=== PATIENT | male | born 1950 | race Caucasian/White ===

== ENCOUNTER 2018-01-24 06:37 | Day surgery (SDC) | payer OTHER ==
[~2018-01-24] VITALS: Ht 177.8 cm; Wt 97.0 kg
[~2018-01-24 06:37] MED LIST: ALBIPROI; ALBU90OI6 INH; ALEN70 PO; AMIL5; ANDROGEL; AZAT50 PO; BUME1; CALCA400CH PO; CALCAVITDA PO; CEFU500; CENTURY PO; CIPR500; CIPR750; COMBIVENT RESPIM4 GM INH; CYCL10 PO; Copegus200 MG PO; DIAZ5 PO; DIPH25; DIPH50; DULO60 PO; EPOE20I; ESCI10; FLUSAL1005; FLUSAL1005 INH; FOLI1; FURO40; FURO40 PO; Flonase 0.05% N16 GM; GABA300; GENERLAC; HARVONI 90-4001 EACH PO; HECORIA0.5 MG PO; HYDMOR2; Keflex500 MG PO; LACT10SY; LEVFLO500; LEVFLO500 PO; MAGCHL64ER; MAGN84; MAGOXI400; MAGOXI400 PO; MESA400ER; METO5; MIDO5; MIDODRINE; MORP15ER; MORP30; MORP30 PO; MULVIT PO; MULVITB&C; MYCO250 PO; NADO20; NADO40; NICO21TP; Norflex100 MG; OMEP10ER; OMEP20ER; ONDA4; OXCA300 PO; OXYC5; PANT40; PHYT5; POTCHL10ER; POTCHL20ER; POTCHL20ER PO; PRED1; PROM25; PROM25 PO; Prednisone20 MG PO; Prilosec Otc20 MG PO; QUIN300; QUIN325; RIFAXIMIN; SPIR50; Senna8.6 MG PO; TACR1 PO; TACROLIMUS0.5 MG PO; TIOT18 INH; Triamcinolone A15 G3; VITAMIN K; [UNRECOGNIZED DRUG - CODE]; [UNRECOGNIZED DRUG - OTHER] PO; [UNRECOGNIZED DRUG - SUPPLY] MC
[2018-01-24] MEDS ORDERED: CALCIUM 500 +1 EAC4 PO (06:50)
[2018-01-24] MEDS ORDERED: PROGRAF PO (06:51)
[2018-01-24] MEDS ORDERED: Vitamin D400 UNI1 PO (06:52)
[2018-01-24] MEDS ORDERED: Norflex100 MG (06:52)
[2018-01-24] MEDS ORDERED: EPIPEN 2-P0.3 MG/0.3 IM (06:52)
[2018-01-24] MEDS ORDERED: ALBU90OI6 INH (06:53)
[2018-01-24 07:12] LABS: International Normalized Ratio 1.06
[2018-01-24] MEDS ORDERED: Neurontin 100100 MG PO (07:14)
[2018-01-24] MEDS ORDERED: MIRT15ST MM (07:16)
[2018-01-24 07:26] LABS: Prostate Specific Antigen 0.035 ng/mL (0.000-4.000)
== END 2018-01-24 23:23 | disposition home or self-care (01) ==
LOC: MHTC 06:37
PROVIDERS: Internal Medicine; Nurse Practitioner
PROC: 065P3ZZ Destruction of Right Saphenous Vein, Percutaneous Approach (ICD-10-PCS; principal; 2018-01-24)
DX: I87.2 Venous insufficiency (chronic) (peripheral) (principal); Z94.4 Liver transplant status; Z79.899 Other long term (current) drug therapy
CPT/HCPCS: 36415; 36475; 85610; 87081; 99152; C1769; C1888; C1894; G0103; J1644; J2250; J3010; J7030; J7040

== ENCOUNTER 2019-04-08 16:33 | Emergency (ER) | payer OTHER ==
[~2019-04-08] VITALS: Ht 177.8 cm; Wt 99.8 kg
[~2019-04-08 16:33] MED LIST changes: +CALCIUM 500 +1 EAC4 PO; +EPIPEN 2-P0.3 MG/0.3 IM; +MIRT15ST MM; +Neurontin 100100 MG PO; +PROGRAF PO; +Vitamin D400 UNI1 PO
== END 2019-04-08 21:17 | disposition home or self-care (01) ==
LOC: ER 16:33
DX: S22.41XA Multiple fractures of ribs, right side, initial encounter for closed fracture (principal); W10.9XXA Fall (on) (from) unspecified stairs and steps, initial encounter; Z88.8 Allergy status to other drugs, medicaments and biological substances; Z79.899 Other long term (current) drug therapy; F17.210 Nicotine dependence, cigarettes, uncomplicated
CPT/HCPCS: 71046; 71100; 96374; 96376; 99283-25; J1170